=== PATIENT | male | born 1940 | race Caucasian/White ===

== ENCOUNTER → 2016-07-11 | Outpatient (CLI) | payer MEDICARE ==
[2016-07-11 09:49] LABS: Basophils % (A) 1 %; CH 30.3; CHCM 31.4; Eosinophils # (A) 0.2 k/uL (0-0.7); Eosinophils % (A) 2 %; HCT 42.9 % (39.0-53.0); HDW 2.39; HGB 13.5 gm/dL (13.0-17.5); Luc % (Auto) 2; Lymphocytes % (A) 11 %; MCH 30.6 pg (25.0-35.0); MCHC 31.5 g/dL (31.0-37.0); MCV 97.1 fL (80.0-100.0); Mean Platelet Volume 7.3; Monocytes # (A) 0.7 k/uL (0-1.0); Monocytes % (A) 7 %; Neutrophils # (A) 7.3 k/uL (1.3-7.7); Neutrophils % (A) 78 %; RBC 4.42 m/uL (4.30-5.90); RDW 13.2 % (11.5-15.5); WBC 9.4 k/uL (3.8-10.6); WBC (Perox) 9.57
[2016-07-11 09:55] LABS: Amorphous Sediment,Urine Rare /hpf; Appearance,Urine Cloudy (Clear); Bacteria,Urine Rare /hpf; Bilirubin,Urine Negative (Negative); Glucose,Urine (UA) Negative (Negative); Ketones,Urine Negative (Negative); Leukocyte Esterase,Urine Large (Negative); Mucus,Urine Few /hpf; Nitrite,Urine Positive (Negative); PH, Urine 5.5 (5.0-8.0); Particle Count 7814; Protein,Urine 2+ (Negative); RBC,Urine >182 /hpf (0-5); Specific Gravity,Urine 1.017 (1.001-1.035); Squamous Epithelial Cell,Urine 1 /hpf (0-4); UA Billing (MACRO vs. MICRO) MICRO; Urobilinogen,Urine <2.0 mg/dL (<2.0); WBC,Urine >182 /hpf (0-5)
[2016-07-11 10:39] LABS: Calcium 9.6 mg/dL (8.4-10.2)
[2016-07-11 10:50] LABS: Potassium 5.1 mmol/L (3.5-5.1)
== END | disposition home or self-care (01) ==
LOC: LABPAT 09:21
PROVIDERS: ATTEND Urology
DX: Z01.812 Encounter for preprocedural laboratory examination (principal); N20.1 Calculus of ureter; E11.9 Type 2 diabetes mellitus without complications; R35.0 Frequency of micturition
CPT/HCPCS: 80048; 81001; 85025; 87077; 87086; 87186

== ENCOUNTER 2016-07-18 08:52 | Day surgery (SDC) | payer MEDICARE ==
[2016-07-13 11:14] VITALS: BMI 31.4
[~2016-07-18 08:52] MED LIST: DEXAMETHASONE SOD PHOSPHATE 10 MG/ML 1 ML VIAL IV ONE; HYDROmorphone 1 MG/ML 1 ML SYRINGE IVP PRN; LACTATED RINGERS 1,000 ML IV SCH; LIDOCAINE 1% 20 ML VIAL (10MG/ML) FOR IV START INTRADERMA PRN; ceFAZolin 1,000 MG in DEXTROSE/WATER 1 50ML.BAG IVPB ONE
--- NOTE | 2016-07-18 09:02 | XR ---
EXAMINATION TYPE: XR KUB DATE OF EXAM: 07/18/2016 8:49 AM COMPARISON: NONE HISTORY: Pain, kidney stones FINDINGS: The osseous structures are intact. The bowel gas pattern is nonspecific. Calcifications the pelvis li kiersten are vascular and stable. Arthropathy of the hips noted. Large central calculi seen bilaterally m easuring approximately 1.1 cm compatible with renal pelvic calcifications. Midpole triangular calcifi cation on the left measuring 7 mm is stable. Arthropathy of the hip joints noted. Vascular calcification seen. IMPRESSION: 1. Stable bilateral nephrolithiasis
[2016-07-18] MEDS ORDERED: LACTATED RINGERS 1,000 ML BAG IV ONE (10:12)
[2016-07-18] MEDS ORDERED: MIDAZOLAM 2 MG/2 ML VIAL ONE (10:12)
[2016-07-18] MEDS ORDERED: PROPOFOL 10 MG/ML 20 ML VIAL IV ONE (10:12)
[2016-07-18] MEDS ORDERED: SUCCINYLCHOLINE CHLORIDE 100 MG/5 ML SYR IV ONE (10:12)
[2016-07-18] MEDS ORDERED: ePHEDrine 50 MG/ML 1 ML AMP ONE (10:12)
[2016-07-18] MEDS ORDERED: fentaNYL (PF) 50 MCG/ML 2 ML AMP ONE (10:12)
[2016-07-18] MEDS ORDERED: LIDOCAINE 1% INJ 10MG/ML (20 ML MDV) ONE (10:12)
[2016-07-18] MEDS ORDERED: IOHEXOL 300 MG/ML 50 ML BOTTLE MISCELLANE ONE (10:34)
[2016-07-18] MEDS ORDERED: LACTATED RINGERS 1,000 ML IV ONE (11:09)
--- NOTE | 2016-07-18 11:30 | P.OP ---
Date of Procedure: 07/18/16 Preoperative Diagnosis: Left ureteral calculus Postoperative Diagnosis: Left ureteral calculi Procedure(s) Performed: Cystoscopy, left retrograde pyelogram, left ureteroscopy with laser lithotripsy to 3 ureteral calculi, placement of 6/ double-J catheter Anesthesia: EROS Surgeon: Ishaan Decker Pathology: other (Stone) Condition: stable Disposition: PACU Indications for Procedure: The patient is a 76-year-old gentleman with a 9 mm proximal ureteral stone that failed to shockwave lithotripsy comes for ureteroscopy and laser lithotripsy Description of Procedure: The patient is brought to the operating suite and given a successful general endotracheal anesthesia. He's placed lithotomy position with a sterile prep and drape. Cystoscopy Foroblique lens and 22-Upper Sorbian sheath identifies normal urethra. The prostate is not significantly obstructing. The ureteral orifices are normal. The bladder mucosa is unremarkable. With a 10-Upper Sorbian cone-tip catheter left retrograde pyelogram performed. There appears to be a filling defect in the distal ureter as well as the larger filling defect in the proximal ureter. The ureter seems to be quite patulous thus I introduced the 7- Upper Sorbian mini semirigid ureteroscope into the distal ureter and 2 stones are found. With the 200 laser probe there broken into tiny pieces and basketed out. I then fortunately I'm able to advance the ureteroscope up to the proximal stone which is about 8 mm. Again with the same 200 probe the stone is broken into tiny pieces and flushed and basket it out. Then of the procedure no 35 wires passed up the renal pelvis. A 6 x 26 double-J catheter is in place after being after the wires backloaded onto the cystoscope. It is passed into the renal pelvis and in the bladder confirmed fluoroscopically and endoscopically. The bladder strain the patient awake and returned recovery in good condition. He'll be discharged home upon recovery and found the office about 10 days for stent removal
[2016-07-18 11:34] VITALS: TEMP 97
--- NOTE | 2016-07-18 11:43 | FL ---
EXAMINATION TYPE: FL urography retrograde DATE OF EXAM: 07/18/2016 11:30 AM COMPARISON: NONE TECHNIQUE: Fluoroscopy. FINDINGS: A total of 45 seconds of fluoroscopic time was utilized during the procedure IMPRESSION: As Above.
[2016-07-18 12:09] VITALS: RESP 18
[2016-07-18 12:59] VITALS: BP 155/76; PULSE 78
== END 2016-07-18 13:20 | disposition home or self-care (01) ==
LOC: OR 08:52
PROVIDERS: ATTEND Urology
DX: N13.2 Hydronephrosis with renal and ureteral calculous obstruction (principal); I10 Essential (primary) hypertension; I73.9 Peripheral vascular disease, unspecified; K21.9 Gastro-esophageal reflux disease without esophagitis; Z72.0 Tobacco use; E11.9 Type 2 diabetes mellitus without complications; E03.9 Hypothyroidism, unspecified; E78.00 Pure hypercholesterolemia, unspecified; E55.9 Vitamin D deficiency, unspecified; Z86.73 Personal history of transient ischemic attack (TIA), and cerebral infarction without residual deficits; Z85.828 Personal history of other malignant neoplasm of skin; Z79.02 Long term (current) use of antithrombotics/antiplatelets; Z79.899 Other long term (current) drug therapy; Z79.1 Long term (current) use of non-steroidal anti-inflammatories (NSAID)
CPT/HCPCS: 52356; 74000; 74420; C2625; C1758; C1769; J2250; J1100; J2001; J3010; J0690; J0330; J2704; Q9967; 82365

== ENCOUNTER → 2016-08-28 | Outpatient (CLI) | payer MEDICARE ==
--- NOTE | 2016-08-28 10:37 | XR ---
Abdomen HISTORY: Kidney stones Frontal view of the abdomen correlated to prior exam dated 18 July 2016, 2 images The oval calcification superimposed of the proximal left ureter is no longer evident. The calculi see n bilaterally on previous exam are again noted. No bowel obstruction or pneumoperitoneum. Vascular ca lcifications are present within the pelvis. IMPRESSION: There may been interval lithotripsy for left ureteral calculus. Bilateral nephrolithiasis .
== END | disposition home or self-care (01) ==
LOC: RADXRMAIN 08:38
PROVIDERS: ATTEND Family Medicine
DX: N20.0 Calculus of kidney (principal)
CPT/HCPCS: 74000

== ENCOUNTER → 2016-09-17 | Outpatient (CLI) | payer MEDICARE ==
[2016-09-17 14:47] LABS: Basophils # (A) 0.1 k/uL (0-0.2); Basophils % (A) 1 %; CH 30.8; CHCM 32.1; Eosinophils # (A) 0.1 k/uL (0-0.7); Eosinophils % (A) 1 %; HCT 47.1 % (39.0-53.0); HDW 2.46; Luc # (Auto) 0.29; Luc % (Auto) 3; Lymphocytes # (A) 1.7 k/uL (1.0-4.8); Lymphocytes % (A) 18 %; MCH 30.7 pg (25.0-35.0); MCHC 31.9 g/dL (31.0-37.0); MCV 96.3 fL (80.0-100.0); Mean Platelet Volume 8.5; Monocytes # (A) 0.5 k/uL (0-1.0); Monocytes % (A) 5 %; Neutrophils # (A) 6.8 k/uL (1.3-7.7); Neutrophils % (A) 72 %; RBC 4.89 m/uL (4.30-5.90); RDW 13.7 % (11.5-15.5); WBC 9.4 k/uL (3.8-10.6); WBC (Perox) 9.31
[2016-09-17 14:54] LABS: Appearance,Urine Cloudy (Clear); Bacteria,Urine Rare /hpf; Bilirubin,Urine Negative (Negative); Glucose,Urine (UA) Negative (Negative); Ketones,Urine Negative (Negative); Leukocyte Esterase,Urine Large (Negative); Mucus,Urine Occasional /hpf; Nitrite,Urine Positive (Negative); PH, Urine 5.5 (5.0-8.0); Particle Count 8038; Protein,Urine 2+ (Negative); RBC,Urine 55 /hpf (0-5); Specific Gravity,Urine 1.018 (1.001-1.035); Squamous Epithelial Cell,Urine <1 /hpf (0-4); UA Billing (MACRO vs. MICRO) MICRO; Urobilinogen,Urine <2.0 mg/dL (<2.0); WBC,Urine >182 /hpf (0-5)
[2016-09-17 14:59] LABS: Anion Gap 15 mmol/L; Blood Urea Nitrogen 25 mg/dL (9-20); Carbon Dioxide 23 mmol/L (22-30); Chloride 107 mmol/L (98-107); Non-African American GFR(MDRD) 54 (>60 ml/min/1.73 sqM); Potassium 5.3 mmol/L (3.5-5.1); Sodium 145 mmol/L (137-145)
== END | disposition home or self-care (01) ==
LOC: LABPAT 14:28
PROVIDERS: ATTEND Urology
DX: N20.0 Calculus of kidney (principal)
CPT/HCPCS: 36415; 80051; 81001; 82565; 84520; 85025

== ENCOUNTER 2016-09-24 12:26 | Day surgery (SDC) | payer MEDICARE ==
[2016-09-20 10:18] VITALS: BMI 31.5
--- NOTE | 2016-09-24 12:25 | XR ---
EXAMINATION TYPE: XR KUB DATE OF EXAM: 09/24/2016 12:20 PM COMPARISON: 08/28/2016 HISTORY: Presurgical TECHNIQUE: One view abdominal series FINDINGS: Right kidney: There is a large 1.4 cm calcification the right UPJ appears stable in size and position . There also is a density along the disc space of L2-3 on the right measuring 6 mm in diameter which could be within the course of the right ureter or be related to osseous structures. Left kidney: 2 calcifications measuring 7 and 5 mm respectively overlying the lower pole stable in ap pear[place]. Pelvis: Vascular calcification seen. Arthropathy of the hips and degenerative change of the spine noted. IMPRESSION: 1. Bilateral nephrolithiasis appears stable. See above regarding density overlying the L2-L3 disc int erspace on the right for possible ureteral calculus.
[~2016-09-24 12:26] MED LIST changes: +Pre Op ABX Message 1 EACH MISC MISCELLANE ONE; -ceFAZolin 1,000 MG in DEXTROSE/WATER 1 50ML.BAG IVPB ONE
[2016-09-24] MEDS ORDERED: LIDOCAINE 1% 20 ML VIAL (10MG/ML) FOR IV START INTRADERMA ONE (13:14)
[2016-09-24] MEDS ORDERED: LACTATED RINGERS 1,000 ML IV ONE (13:16)
[2016-09-24] MEDS ORDERED: fentaNYL (PF) 50 MCG/ML 2 ML AMP ONE (13:17)
[2016-09-24] MEDS ORDERED: MIDAZOLAM 2 MG/2 ML VIAL ONE (13:17)
[2016-09-24] MEDS ORDERED: PROPOFOL 10 MG/ML 20 ML VIAL IV ONE (13:17)
[2016-09-24] MEDS ORDERED: LIDOCAINE 1% INJ 10MG/ML (20 ML MDV) ONE (13:17)
--- NOTE | 2016-09-24 13:47 | P.OP ---
Date of Procedure: 09/24/16 Preoperative Diagnosis: Right renal stone Postoperative Diagnosis: Right renal stone Procedure(s) Performed: Shockwave lithotripsy right 2500 shockwaves at energy level IV Anesthesia: MAC Surgeon: Ishaan Decker Pathology: none sent Condition: stable Disposition: PACU Indications for Procedure: The patient is a 76-year-old gentleman with kidney stones. He has a 15 mm right renal pelvic stone and comes for shockwave lithotripsy. Description of Procedure: Patient is brought to the operating suite and placed on the lithotripsy table in a supine position. He is given IV sedation. The stone was seen in 2 views of fluoroscopy. 2500 shocks at energy level IV administered. The stone fractures nicely. Then the procedure the patient's awakened and returned recovery room good condition. He'll be followed in the office in one week
[2016-09-24 14:16] VITALS: BP 129/80; PULSE 70; RESP 18
== END 2016-09-24 14:43 | disposition home or self-care (01) ==
LOC: ORWHC2ENDO 12:26
PROVIDERS: ATTEND Urology
DX: N20.0 Calculus of kidney (principal); I10 Essential (primary) hypertension; E11.9 Type 2 diabetes mellitus without complications; E03.9 Hypothyroidism, unspecified; E78.00 Pure hypercholesterolemia, unspecified; E78.5 Hyperlipidemia, unspecified; K21.9 Gastro-esophageal reflux disease without esophagitis; E55.9 Vitamin D deficiency, unspecified; Z86.73 Personal history of transient ischemic attack (TIA), and cerebral infarction without residual deficits; Z85.828 Personal history of other malignant neoplasm of skin; F17.200 Nicotine dependence, unspecified, uncomplicated; Z79.899 Other long term (current) drug therapy; Z79.82 Long term (current) use of aspirin; Z79.84 Long term (current) use of oral hypoglycemic drugs; Z79.02 Long term (current) use of antithrombotics/antiplatelets
CPT/HCPCS: 74000; 50590; J2250; J2001; J3010; J2704

== ENCOUNTER → 2016-10-01 | Outpatient (CLI) | payer MEDICARE ==
--- NOTE | 2016-10-01 09:01 | XR ---
EXAMINATION TYPE: XR KUB DATE OF EXAM ORDERED: 10/01/2016 8:37 AM HISTORY: N20.0 stones. COMPARISON: Previous. FINDINGS: The patient's right-sided renal calculus is no longer visualized. There is Steinstrasse in the distal right ureter. 2 calculi in the lower pole of the left kidney unchanged. IMPRESSION: 1. LEFT-SIDED NEPHROLITHIASIS, UNCHANGED FROM PREVIOUS. 2. STEINSTRASSE IN THE DISTAL RIGHT URETER.
== END | disposition home or self-care (01) ==
LOC: RADXRMAIN 08:23
PROVIDERS: ATTEND Urology
DX: N20.0 Calculus of kidney (principal)
CPT/HCPCS: 74000

== ENCOUNTER → 2017-02-05 | Outpatient (CLI) | payer MEDICARE | END | disposition home or self-care (01) | LOC: RADUSWWP 12:52 | PROVIDERS: ATTEND Family Medicine | DX: I10 Essential (primary) hypertension (principal); E78.5 Hyperlipidemia, unspecified; I77.89 Other specified disorders of arteries and arterioles | CPT/HCPCS: 93923 ==

== ENCOUNTER → 2019-09-10 | Outpatient (CLI) | payer MEDICARE ==
--- NOTE | 2019-09-10 10:57 | XR ---
EXAMINATION TYPE: XR KUB DATE OF EXAM: 09/10/2019 COMPARISON: 10/01/2016 HISTORY: Right-sided flank pain TECHNIQUE: One view abdominal series FINDINGS: The osseous structures are intact. The bowel gas pattern is nonspecific. Left kidney: There are 2 calcifications noted overlying the mid pole measuring approximately 7 and 9 mm respectively. Right kidney: No suspicious calcification seen. Mid and lower pole somewhat limited due to overlying bowel content. Hypertrophic and degenerative change of the spine. Arthropathy of the hips. Vascular calcifications n oted. IMPRESSION: 1. Nonspecific abdomen. 2. Left nephrolithiasis.
== END | disposition home or self-care (01) ==
LOC: RADXRMAIN 10:29
PROVIDERS: ATTEND Urology
DX: N20.0 Calculus of kidney (principal)
CPT/HCPCS: 74018